=== PATIENT | male | born 1950 | race Caucasian/White ===

== ENCOUNTER → 2019-02-02 | Outpatient (CLI) | payer MEDICARE, MEDICAID ==
[~2019-02-02] MED LIST: ALBU0.63 NEB; ATOR10TA9 PO; INSU100C5 SQ-INSULIN; LOSA100T14 PO; METO-99 PO
[2019-02-02 12:43] LABS: BASOPHILS # (AUTO) 0.06 x10^3/uL (0-0.1); BASOPHILS % (AUTO) 1 % (0-1); EOSINOPHILS # (AUTO) 0.26 x10^3/uL (0-0.4); EOSINOPHILS % (AUTO) 2 % (1-7); LYMPHOCYTES # (AUTO) 2.21 x10^3/uL (1-3.4); LYMPHOCYTES % (AUTO) 21 % (22-44); MD NO; MEAN CORPUSCULAR HEMOGLOBIN 31.5 pg (27.5-34.5); MEAN CORPUSCULAR HGB CONC 33.3 g/dL (33.2-36.2); MEAN CORPUSCULAR VOLUME 94.4 fL (81-97); MEAN PLATELET VOLUME 6.8 fL (7.4-10.4); MONOCYTES # (AUTO) 0.82 x10^3/uL (0.2-0.8); MONOCYTES % (AUTO) 8 % (2-9); NEUTROPHILS # (AUTO) 7.27 x10^3/uL (1.8-6.8); NEUTROPHILS % (AUTO) 68 % (42-75); PLATELET COUNT 341 x10^3/uL (130-400); RED BLOOD COUNT 4.83 x10^6/uL (4.38-5.82); RED CELL DISTRIBUTION WIDTH 13.3 % (9.4-14.8)
[2019-02-02 12:51] LABS: PROTHROMBIN TIME 10.5 Seconds (9.6-11.5)
[2019-02-02 12:54] LABS: ALBUMIN 3.8 g/dL (3.4-5.0); ANION GAP 7 mmol/L (5-15); CALCIUM 9.2 mg/dL (8.5-10.1); CHLORIDE 106 mmol/L (98-107)
[2019-02-02 12:59] LABS: ALANINE AMINOTRANSFERASE 27 U/L (12-78); ALKALINE PHOSPHATASE 91 U/L (45-117); BILIRUBIN,TOTAL 1.1 mg/dL (0.2-1.0); CREATININE 1.44 mg/dL (0.7-1.3)
[2019-02-02 15:14] LABS: MICROSCOPIC NOT IND
[2019-02-02 15:18] LABS: CULTURE INDICATED? NO
== END | disposition home or self-care (01) ==
LOC: STAR 11:40
PROVIDERS: ATTEND Neurological Surgery
DX: Z01.818 Encounter for other preprocedural examination (principal); M48.02 Spinal stenosis, cervical region; M50.00 Cervical disc disorder with myelopathy, unspecified cervical region
CPT/HCPCS: 36415; 71046; 80053; 81003; 85025; 85610; 85730; 93005

== ENCOUNTER 2019-02-13 05:38 | Inpatient (IN) | payer MEDICARE, MEDICAID ==
[~2019-02-13] VITALS: Ht 167.6 cm; Wt 77.1 kg
[2019-02-13] MEDS ORDERED: LACTATED RINGERS 1,000 ML IV SCH (06:13)
[2019-02-13 06:16] VITALS: BP 157/87
[2019-02-13] MEDS ORDERED: THROMBIN 20,000 UNIT VIAL TP ONE (06:17)
[2019-02-13] MEDS ORDERED: BUPIVACAINE/PF 0.5% ONE (06:17)
[2019-02-13] MEDS ORDERED: BACITRACIN 50,000 UNIT ONE (06:17)
[2019-02-13] MEDS ORDERED: EPINEPHRINE 1 MG/ML, 1ML ONE (06:17)
[2019-02-13] MEDS ORDERED: PROPOFOL 10 MG/ML, 20ML ONE ×3 (07:20→11:26)
[2019-02-13] MEDS ORDERED: LIDOCAINE-MPF 2% ,5ML ONE ×3 (07:20→08:40)
[2019-02-13] MEDS ORDERED: FENTANYL PF 250 MCG/5ML ONE ×3 (07:20→08:57)
[2019-02-13] MEDS ORDERED: MIDAZOLAM 1 MG/ML, 2ML ONE (07:20)
[2019-02-13] MEDS ORDERED: ROCURONIUM 10MG/ML,5ML ONE (07:21)
[2019-02-13] MEDS ORDERED: DEXAMETHASONE 4 MG/ML, 1ML ONE ×3 (07:22)
[2019-02-13] MEDS ORDERED: PHENYLEPHRINE 10 MG/ML ONE (07:24)
[2019-02-13] MEDS ORDERED: PROPOFOL 50 ML ONE ×5 (07:25→10:38)
[2019-02-13] MEDS ORDERED: SCOPOLAMINE PATCH, 1.5MG PATCH.TD72 TD ONE (07:30)
[2019-02-13] MEDS ORDERED: DIAZEPAM 5 MG TABLET PO ONE (07:30)
[2019-02-13] MEDS ORDERED: GABAPENTIN 300 MG CAPSULE PO ONE (07:30)
[2019-02-13] MEDS ORDERED: ACETAMINOPHEN 500 MG TABLET PO ONE (07:30)
[2019-02-13] MEDS ORDERED: SUCCINYLCHOLINE 20 MG/ML, 10ML ONE (07:37)
[2019-02-13] MEDS ORDERED: EPHEDRINE 50 MG/ML, 1ML ONE (07:49)
[2019-02-13] MEDS ORDERED: FENTANYL PF 100 MCG/2ML IV PRN (09:00)
[2019-02-13] MEDS ORDERED: OXYcodone 5 MG/5 ML ORAL.SOL UDC PO PRN (09:00)
[2019-02-13] MEDS ORDERED: HALOPERIDOL 5 MG/ML IV PRN (09:00)
[2019-02-13] MEDS ORDERED: DIAZEPAM 5 MG/ML, 2ML IVPush PRN (09:00)
[2019-02-13] MEDS ORDERED: PROMETHAZINE 25 MG/ML, 1ML IV PRN (09:00)
[2019-02-13] MEDS ORDERED: EPHEDRINE 50 MG/ML, 1ML IVPush PRN (09:00)
[2019-02-13] MEDS ORDERED: hydrALAzine 20 MG/ML, 1ML IV PRN (09:00)
[2019-02-13] MEDS ORDERED: ONDANSETRON 2MG/ML, 2ML IV PRN ×2 (09:00→15:00)
[2019-02-13] MEDS ORDERED: LABETALOL 5MG/ML, 20ML IV PRN (09:00)
[2019-02-13] MEDS ORDERED: MEPERIDINE/PF 25MG/0.5ML IVPush PRN (09:00)
[2019-02-13] MEDS ORDERED: ONDANSETRON ODT 8 MG PO PRN (09:00)
[2019-02-13] MEDS ORDERED: PROMETHAZINE 12.5 MG SUPP PR PRN (09:00)
[2019-02-13] MEDS ORDERED: HYDROmorphone 2 MG/ML, 1ML IVPush PRN (09:00)
[2019-02-13] MEDS ORDERED: ALBUTEROL SULFATE 2.5 MG/3 ML NPPB PRN (09:00)
[2019-02-13] MEDS ORDERED: MORPHINE SULFATE 4 MG/ML, 1ML IVPush PRN (09:00)
[2019-02-13] MEDS ORDERED: MIDAZOLAM 1 MG/ML, 2ML IV PRN (09:00)
[2019-02-13 14:20] VITALS: BP 154/82
[2019-02-13] MEDS ORDERED: DIPHENHYDRAMINE 50 MG/ML, 1ML IVPush PRN (15:00)
[2019-02-13] MEDS ORDERED: DIPHENHYDRAMINE 50 MG CAPSULE PO PRN (15:00)
[2019-02-13] MEDS ORDERED: ACETAMINOPHEN 650 MG SUPP PR PRN (15:00)
[2019-02-13] MEDS ORDERED: OXYcodone IR 5MG TABLET PO PRN (15:00)
[2019-02-13] MEDS ORDERED: PROMETHAZINE 25 MG/ML, 1ML IM PRN (15:00)
[2019-02-13] MEDS ORDERED: ALBUTEROL SULFATE 2.5MG/0.5ML NPPB PRN (15:00)
[2019-02-13] MEDS ORDERED: MAGNESIUM HYDROXIDE 8%, 30ML UDC PO PRN (15:00)
[2019-02-13] MEDS ORDERED: ACETAMINOPHEN 325 MG TABLET PO PRN (15:00)
[2019-02-13] MEDS ORDERED: DIPHENHYDRAMINE 50 MG/ML, 1ML IM PRN (15:00)
[2019-02-13] MEDS ORDERED: BISACODYL 10 MG SUPP PR PRN (15:00)
[2019-02-13] MEDS: CEFAZOLIN PMX 1GM/50ML 50 ML IVPB SCH (15:53)
[2019-02-13] MEDS: NS + 20MEQ KCL 1,000 ML IV SCH (15:54)
[2019-02-13] MEDS: INSULIN REGULAR 100 UNITS/ML, 3ML VIAL SQ-INSULIN SCH ×2 (15:56→21:21)
[2019-02-13] MEDS: METHOCARBAMOL 750 MG TABLET PO PRN (16:30)
[2019-02-13] MEDS: OXYcodone/APAP 5/325MG TABLET PO PRN ×2 (16:30→21:21)
--- NOTE | 2019-02-13 16:35 | NUR ---
REC: NPO with sips/chips and meds only for now; swallowing precautions posted in room Addendum: 02/13/19 at 1636 by Tanya GALLARDO Amended: Links added.
[2019-02-13] MEDS ORDERED: [UNRECOGNIZED DRUG - REMARK] MC SCH (17:30)
[2019-02-13 17:59] VITALS: BP 158/81
[2019-02-13] MEDS: METOPROLOL TARTRATE 50 MG TABLET PO SCH (17:59)
[2019-02-13 20:11] VITALS: BP 125/71
[2019-02-13] MEDS ORDERED: ATORVASTATIN 10 MG TABLET PO SCH (21:00)
[2019-02-14 00:01] VITALS: BP 122/68
[2019-02-14] MEDS: CEFAZOLIN PMX 1GM/50ML 50 ML IVPB SCH (00:42)
[2019-02-14] MEDS: NS + 20MEQ KCL 1,000 ML IV SCH ×2 (01:00→11:00)
[2019-02-14] MEDS: METHOCARBAMOL 750 MG TABLET PO PRN (01:36)
[2019-02-14] MEDS: OXYcodone/APAP 5/325MG TABLET PO PRN ×2 (01:36→05:55)
[2019-02-14 04:27] VITALS: BP 127/64
[2019-02-14] MEDS: METOPROLOL TARTRATE 50 MG TABLET PO SCH (05:55)
[2019-02-14] MEDS: INSULIN REGULAR 100 UNITS/ML, 3ML VIAL SQ-INSULIN SCH ×2 (07:00→11:00)
[2019-02-14 08:10] VITALS: BP 131/69
[2019-02-14] MEDS ORDERED: SENNA/DOCUSATE TABLET PO SCH (09:00)
[2019-02-14] MEDS ORDERED: LOSARTAN 50MG TABLET PO SCH (09:00)
[2019-02-14] MEDS ORDERED: OXYC5TAB2 PO (09:56)
[2019-02-14] MEDS ORDERED: METH750T87 PO (09:57)
[2019-02-14 11:34] VITALS: BP 128/68
[2019-02-14] MEDS ORDERED: ENOXAPARIN 40 MG/0.4 ML SQ SCH (12:00)
== END 2019-02-14 12:00 | disposition home or self-care (01) | DRG 472 ==
LOC: ORIP 05:38 → 4NOR 14:17 → DCLOUNGE 02-14 11:53
PROVIDERS: ADMIT Neurological Surgery; ATTEND Neurological Surgery
PROC: 0RB30ZZ Excision of Cervical Vertebral Disc, Open Approach (ICD-10-PCS; 2019-02-13)
PROC: 01N10ZZ Release Cervical Nerve, Open Approach (ICD-10-PCS; 2019-02-13)
PROC: 00NW0ZZ Release Cervical Spinal Cord, Open Approach (ICD-10-PCS; 2019-02-13)
PROC: 4A11X4G Monitoring of Peripheral Nervous Electrical Activity, Intraoperative, External Approach (ICD-10-PCS; 2019-02-13)
PROC: 0RG20A0 Fusion of 2 or more Cervical Vertebral Joints with Interbody Fusion Device, Anterior Approach, Anterior Column, Open Approach (ICD-10-PCS; principal; 2019-02-13 07:30)
DX: M47.12 Other spondylosis with myelopathy, cervical region (principal); G95.89 Other specified diseases of spinal cord; M47.22 Other spondylosis with radiculopathy, cervical region; M48.02 Spinal stenosis, cervical region; Z79.899 Other long term (current) drug therapy
CPT/HCPCS: 36600; 72040; 82803; 82805; 82962; C1713; G0378; J0171; J0690; J1100; J2250; J2704; J3010; J3480; J0330; J2370; J7120